=== PATIENT | female | born 1970 | race Caucasian/White ===

== ENCOUNTER → 2017-01-06 | Outpatient (CLI) | payer OTHER ==
[~2017-01-06] MED LIST: PHEN100T26; PROP1TAB77
--- OUTSIDE RECORDS SUMMARY | 2017-01-06 07:49 | XMS REPORT | Continuity of Care Document ---
Demographics Preferred Language Unknown Marital Status Unknown Advent Affiliation Unknown Race Unknown Ethnic Group Unknown Author Author [facility] Address Unknown Phone Unavailable Allergies Active Description Code Type Severity Reaction Onset Reported/Identified Relationship to Patient Clinical Status Yes Penicillins [id number] Drug Allergy Mild N/A 10/14/2009 Medications Problems Date Dx Coded Attending Type Code Diagnosis Diagnosed By 12/09/2012 V04.81 FLU DX (3 YRS AND ABOVE, IM) 10/16/2015 Ot 625.8 10/16/2015 Ot 626.8 10/16/2015 Ot 592.0 10/16/2015 Ot 789.00 10/16/2015 Ot 620.2 10/16/2015 Ot 789.03 10/16/2015 Ot V76.12 10/16/2015 REX YIP Ot V76.12 10/16/2015 REX YIP Ot 793.89 10/16/2015 REX YIP Ot 610.0 10/16/2015 REX YIP Ot 611.89 11/02/2015 Ot 625.8 11/02/2015 Ot 626.8 11/02/2015 Ot 592.0 11/02/2015 Ot 789.00 11/02/2015 Ot 620.2 11/02/2015 Ot 789.03 11/02/2015 Ot V76.12 11/02/2015 REX YIPP Ot V76.12 11/02/2015 REX YIPP Ot 793.89 11/02/2015 QUICKREX Ot 610.0 11/02/2015 QUICKREX REPAIR WEAVER Ot 611.89 11/11/2015 Ot 592.0 11/11/2015 Ot 789.00 11/11/2015 Ot 620.2 11/11/2015 Ot 789.03 11/11/2015 Ot V76.12 11/11/2015 REX YIPP Ot V76.12 11/11/2015 REX YIP Ot 793.89 11/11/2015 REX YIP Ot 610.0 11/11/2015 QUICK, REX Clemons REPAIR WEAVER Ot 611.89 01/21/2016 Ot 592.0 01/21/2016 Ot 789.00 01/21/2016 Ot 620.2 01/21/2016 Ot 789.03 01/21/2016 Ot V76.12 01/21/2016 QUICK, REX Clemons REPAIR WEAVER Ot V76.12 01/21/2016 QUICK, REX Clemons REPAIR WEAVER Ot 793.89 01/21/2016 QUICK, REX Clemons REPAIR WEAVER Ot 610.0 01/21/2016 QUICK, REX Clemons REPAIR WEAVER Ot 611.89 01/29/2016 Ot 592.0 01/29/2016 Ot 789.00 01/29/2016 Ot 620.2 01/29/2016 Ot 789.03 01/29/2016 Ot V76.12 01/29/2016 QUICK, REX Clemons REPAIR WEAVER Ot V76.12 01/29/2016 QUICK, REX Clemons REPAIR WEAVER Ot 793.89 01/29/2016 QUICK, REX Clemons REPAIR WEAVER Ot 610.0 01/29/2016 QUICK, REX Clemons REPAIR WEAVER Ot 611.89 01/29/2016 MARSHA WILKS MAINTENANCE MAN Ot M25.511 02/20/2016 QUICK, REX Clemons REPAIR WEAVER Ot Z12.31 02/27/2016 MARSHA WILKS MAINTENANCE MAN Ot M25.511 03/25/2016 QUICK, REX Celmons REPAIR WEAVER Ot Z12.31 ENCNTR SCREEN MAMMOGRAM FOR MALIGNANT NE 09/11/2016 Ot 592.0 CALCULUS OF KIDNEY 09/11/2016 Ot 789.00 ABDOMINAL PAIN, UNSPECIFIED SITE 09/11/2016 Ot 620.2 OVARIAN CYST NEC/NOS 09/11/2016 Ot 789.03 ABDOMINAL PAIN, RIGHT LOWER QUADRANT 09/11/2016 Ot V76.12 OTH SCREEN MAMMO-MALIGN NEOPLASM OF 09/11/2016 QUICK, REX Clemons REPAIR WEAVER Ot V76.12 OTH SCREEN MAMMO-MALIGN NEOPLASM OF 09/11/2016 QUICK, REX Clemons REPAIR WEAVER Ot 793.89 OTH (ABN) FINDINGS ON RADIOLOGICAL EXAMI 09/11/2016 QUICK, REX Clemons REPAIR WEAVER Ot 610.0 SOLITARY CYST OF BREAST 09/11/2016 QUICK, REX Clemons REPAIR WEAVER Ot 611.89 OTHER SPECIFIED DISORDERS OF BREAST 09/11/2016 MARSHA WILKS APRN Ot M25.511 PAIN IN RIGHT SHOULDER 09/11/2016 REX YIP Ot Z12.31 ENCNTR SCREEN MAMMOGRAM FOR MALIGNANT NE 10/29/2016 Ot 789.00 ABDOMINAL PAIN, UNSPECIFIED SITE 10/29/2016 Ot 620.2 OVARIAN CYST NEC/NOS 10/29/2016 Ot 789.03 ABDOMINAL PAIN, RIGHT LOWER QUADRANT 10/29/2016 Ot V76.12 OTH SCREEN MAMMO-MALIGN NEOPLASM OF 10/29/2016 REX YIP Ot V76.12 OTH SCREEN MAMMO-MALIGN NEOPLASM OF 10/29/2016 REX YIP Ot 793.89 OTH (ABN) FINDINGS ON RADIOLOGICAL EXAMI 10/29/2016 REX YIP Ot 610.0 SOLITARY CYST OF BREAST 10/29/2016 REX YIP Ot 611.89 OTHER SPECIFIED DISORDERS OF BREAST 10/29/2016 MARSHA WILKS APRN Ot M25.511 PAIN IN RIGHT SHOULDER 10/29/2016 REX YIP Ot Z12.31 ENCNTR SCREEN MAMMOGRAM FOR MALIGNANT NE Procedures Results Encounters ACCT No. Visit Date/Time Discharge Status Pt. Type Provider Facility Loc./Unit Complaint [id number] 12/09/2012 16:22:00 12/09/2012 23: 59:59 CLS Outpatient
--- NOTE | 2017-01-06 19:17 | Diagnostic Imaging Report ---
Unilateral diagnostic right mammogram. INDICATION: Right breast lump. This study was compared to the prior exams of 02/19/16, 12/25/14 and 05/17/13. At this time, the patient does complain of a palpable abnormality in the 2-3 o'clock position of the right breast. The current study was also evaluated with a Computer Aided Detection (CAD) system. FINDINGS: A marker is placed in the area of concern. In this area, there does appear to be a small roughly 2.5 x 2.5 cm rounded soft tissue density. The margins of this density are difficult to assess due to the fibroglandular tissue but I suspect that this is a benign process such as a cyst. Even so, a solid mass could present in this manner. Ultrasound would be recommended for further study. The fibroglandular tissue in the right breast is dense and this does limit the sensitivity of this exam. There is no primary or secondary sign of malignancy noted otherwise. There are a few calcifications evident in the right breast but these calcifications have a generally benign appearance. IMPRESSION: Ultrasound would be recommended for further evaluation of the 2.5 x 2.5 cm rounded density in the area of the patient's palpable abnormality. ACR BI-RADS Category 0: Incomplete. (Needs additional imaging evaluation). Result letter will be mailed to the patient. Note: At least 10% of breast cancer is not imaged by mammography. Dictated by: Dictated on workstation # [id number]
--- NOTE | 2017-01-06 20:03 | Diagnostic Imaging Report ---
Right breast ultrasound. INDICATION: Right breast mass. FINDINGS: The diagnostic mammogram performed earlier today suggested that there was a soft tissue density in the region of the patient's palpable abnormality in the 1-2 o'clock position of the right breast. The ultrasound examination of this are does show a well-circumscribed 2.3 x 1.6 x 2.4 cm hypoechoic area with a few internal echoes in this region. I suspect that this is a cyst which has been slightly complicated by infection and/or hemorrhage. There is no sign of a solid mass to suggest malignancy. The calcifications in the right breast seen on the mammogram could not be identified on this study. IMPRESSION: 1. The patient's palpable abnormality is felt to be related to a small slightly complicated cyst. There is no evidence for malignancy. 2. The patient should have her annual bilateral screening mammogram on schedule in February of 2017. The suspected cyst in the right breast could be further evaluated at that time with a repeat ultrasound exam, if clinically indicated. ACR BI-RADS Category 2: Benign findings. Dictated by: Dictated on workstation # [id number]
== END ==
LOC: RAD 07:46
PROVIDERS: ATTEND Nurse Practitioner
DX: N63 Unspecified lump in breast (principal)

== ENCOUNTER → 2018-02-17 | Outpatient (CLI) | payer BC ==
--- NOTE | 2018-02-17 20:27 | Diagnostic Imaging Report ---
EXAMINATION: Ultrasound of the right breast, limited. INDICATION: Right Breast mass. FINDINGS: The screening mammogram performed on 02/04/2018 noted a small but slightly enlarging density in the superior outer aspect of the right breast in the region of the axillary tail. The diagnostic mammogram performed earlier today suggested that this was most likely a benign process as it had a smooth border. On this exam, there is a well-circumscribed avascular hypoechoic lesion with through-transmission in the 10:30 position of the breast, roughly 9 cm from the nipple. This measures 0.6 x 0.5 x 0.6 cm. This has the appearance of a simple cyst, and most likely this does correspond to the density seen on the mammogram. There are no solid lesions in this area to suggest malignancy. IMPRESSION: 1. The small density seen in the upper-outer aspect of the right breast on the screening mammogram is felt to represent a cyst. There is no evidence of malignancy. 2. The patient should have her annual bilateral screening mammogram on schedule in January of 2019. ACR BI-RADS Category 2: Benign findings. Dictated by: Dictated on workstation # [id number]
--- NOTE | 2018-02-17 20:53 | Diagnostic Imaging Report ---
Unilateral diagnostic right mammogram. INDICATION: Abnormal screening mammogram. The current study was also evaluated with a Computer Aided Detection (CAD) system. The prior exam of 02/04/2018 noted a slightly enlarging density in the upper-outer aspect of the right breast. Compression views of this area show that this density has a generally benign appearance. Even so, ultrasound would be recommended for further study. IMPRESSION: Ultrasound would be recommended for further aeration of the benign-appearing nodular density in the upper aspect of the right breast. ACR BI-RADS Category 0: Incomplete. (Needs additional imaging evaluation). Result letter will be mailed to the patient. Note: At least 10% of breast cancer is not imaged by mammography. Dictated by: Dictated on workstation # [id number]
== END ==
LOC: RAD 12:39
PROVIDERS: ATTEND Nurse Practitioner
DX: N63.11 Unspecified lump in the right breast, upper outer quadrant (principal)

== ENCOUNTER → 2019-05-03 | Outpatient (CLI) | payer BC ==
--- NOTE | 2019-05-03 19:05 | Diagnostic Imaging Report ---
INDICATION: Routine screening. Comparison is made with prior mammograms from 02/04/2018 and 02/19/2016. 2-D and 3-D bilateral screening mammography was performed. The current study was also evaluated with a Computer Aided Detection (CAD) system. 3-D tomosynthesis was also performed and reviewed. FINDINGS: Both breasts are heterogeneously dense, limiting the sensitivity of mammography. A density in the region of the axillary tail of the right breast appears stable. There are benign calcifications in the retroareolar left breast. No new mass or malignant-appearing microcalcifications are seen. Axillae are unremarkable. IMPRESSION: No mammographic features suspicious for malignancy are identified. ACR BI-RADS Category 2: Benign findings. Result letter will be mailed to the patient. Note: At least 10% of breast cancer is not imaged by mammography. Dictated by: Dictated on workstation # [id number]
== END ==
LOC: RAD 15:08
PROVIDERS: ATTEND Nurse Practitioner
DX: Z12.31 Encounter for screening mammogram for malignant neoplasm of breast (principal)
CPT/HCPCS: 77067

== ENCOUNTER → 2020-10-08 | Outpatient (CLI) | payer BC ==
--- NOTE | 2020-10-08 16:23 | Diagnostic Imaging Report ---
PROCEDURE: US Non-ob pelvis comp/trans. TECHNIQUE: Multiple Real-time grayscale images were obtained of the pelvis in various projections endovaginally. Transabdominal imaging was also performed. INDICATION: Dysfunctional uterine bleeding. FINDINGS: The uterus is anteverted and measures 8.7 x 4.5 x 6.7 cm. There is a mixed echogenicity mass in the endometrium measuring 1.6 x 2.1 cm. There is no blood flow within it. This is likely a hematoma. The right ovary is not visualized. The left ovary is normal in appearance. There are no adnexal masses. There is no free pelvic fluid. IMPRESSION: Mixed echogenicity area within the endometrium following ablation measuring 1.6 x 2.1 cm, likely a hematoma. There is no blood flow within this. Recommend clinical correlation and followup ultrasound as clinically warranted. Dictated by: Dictated on workstation # [id number]
== END ==
LOC: RAD 14:46
PROVIDERS: ATTEND Nurse Practitioner
DX: N93.8 Other specified abnormal uterine and vaginal bleeding (principal); N85.8 Other specified noninflammatory disorders of uterus
CPT/HCPCS: 76830; 76856

== ENCOUNTER → 2020-10-16 | Outpatient (CLI) | payer BC ==
--- NOTE | 2020-10-17 07:59 | NUR ---
Notified patient of her positive COVID test.
== END ==
LOC: LABNPT 08:38
PROVIDERS: ATTEND Family Medicine
DX: U07.1 COVID-19 (principal)
CPT/HCPCS: 87635

== ENCOUNTER 2021-06-23 14:03 | Emergency (ER) | payer BC ==
[~2021-06-23] VITALS: Ht 165.1 cm; Wt 50.8 kg
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
[2021-06-23 14:39] LABS: BASOPHILS % (AUTO) 0 % (0-10); EOSINOPHILS # (AUTO) 0.2 10^3/uL (0.0-0.3); EOSINOPHILS % (AUTO) 2 % (0-10); HEMATOCRIT 40 % (35-52); HEMOGLOBIN 13.4 g/dL (11.5-16.0); LYMPHOCYTES # (AUTO) 2.8 10^3/uL (1.0-4.0); LYMPHOCYTES % (AUTO) 32 % (12-44); MEAN CORPUSCULAR HEMOGLOBIN 31 pg (25-34); MEAN CORPUSCULAR HGB CONC 33 g/dL (32-36); MEAN CORPUSCULAR VOLUME 92 fL (80-99); MEAN PLATELET VOLUME 9.3 fL (9.0-12.2); MONOCYTES # (AUTO) 0.5 10^3/uL (0.0-1.0); MONOCYTES % (AUTO) 6 % (0-12); NEUTROPHILS # (AUTO) 5.1 10^3/uL (1.8-7.8); NEUTROPHILS % (AUTO) 60 % (42-75); PLATELET COUNT 287 10^3/uL (130-400); WHITE BLOOD COUNT 8.6 10^3/uL (4.3-11.0)
[2021-06-23 14:41] LABS: CHLORIDE 104 MMOL/L (98-107); POTASSIUM 3.7 MMOL/L (3.6-5.0); SODIUM 142 MMOL/L (135-145)
[2021-06-23 14:42] LABS: CALCIUM 9.5 MG/DL (8.5-10.1)
[2021-06-23 14:43] LABS: GLUCOSE 133 MG/DL (70-105)
[2021-06-23 14:44] LABS: CARBON DIOXIDE 27 MMOL/L (21-32); PROTHROMBIN TIME PATIENT 13.7 SEC (12.2-14.7)
[2021-06-23 14:45] LABS: BILIRUBIN,TOTAL 0.5 MG/DL (0.1-1.0)
[2021-06-23] MEDS ORDERED: ASPIRIN 81 MG CHEW (CHILDREN'S ASA) PO ONE (14:45)
[2021-06-23 14:46] LABS: ALKALINE PHOSPHATASE 80 U/L (40-136)
[2021-06-23 14:47] LABS: CREATININE SERUM 0.78 MG/DL (0.60-1.30); GFR ESTIMATED 78
[2021-06-23 14:48] LABS: BUN/CREATININE RATIO 23
[2021-06-23 14:49] LABS: MAGNESIUM 2.2 MG/DL (1.6-2.4)
[2021-06-23 14:50] LABS: ALANINE AMINOTRANSFERASE 17 U/L (0-55)
--- NOTE | 2021-06-23 14:51 | Diagnostic Imaging Report ---
INDICATION: Left-sided chest pain. FINDINGS: The lungs are clear. There is no pneumothorax or pleural fluid. No failure, effusion, or pneumothorax. IMPRESSION: No acute appearing abnormality. Dictated by: Dictated on workstation # [id number]
[2021-06-23] MEDS ORDERED: KETOROLAC 30 MG/ML VIAL IVP STA (15:07)
[2021-06-23] MEDS ORDERED: NAPR-1071 PO (15:26)
[2021-06-23 15:35] VITALS: BP 97/49
== END 2021-06-23 15:35 | disposition home or self-care (01) ==
LOC: EDUNIT# 14:03 → ER 14:05
DX: R07.1 Chest pain on breathing (principal); Z86.16 Personal history of COVID-19
CPT/HCPCS: 36415; 71045; 80053; 83735; 83874; 84484; 85025; 85610; 85730; 93005; 93041

== ENCOUNTER → 2021-07-04 | Outpatient (CLI) | payer BC ==
[~2021-07-04] MED LIST changes: +NAPR-1071 PO
--- NOTE | 2021-07-07 09:03 | Diagnostic Imaging Report ---
Indication: Routine screening. Comparison is made with prior mammogram 06/28/2020 and 05/03/2019. 2-D and 3-D bilateral screening mammography was performed with CAD. Both breasts are heterogeneously dense, limiting the sensitivity of mammography. There are benign calcifications present. Overall parenchymal pattern appears to be stable. No dominant mass or malignant-appearing microcalcifications are seen. Axillae are unremarkable. IMPRESSION: BI-RADS Category 2 No mammographic features suspicious for malignancy are identified. ACR BI-RADS Category 2: Benign findings. Result letter will be mailed to the patient. Note: At least 10% of breast cancer is not imaged by mammography. Dictated by: Dictated on workstation # [id number]
== END ==
LOC: RAD 14:51
PROVIDERS: ATTEND Family Medicine
DX: Z12.31 Encounter for screening mammogram for malignant neoplasm of breast (principal)
CPT/HCPCS: 77063; 77067

== ENCOUNTER → 2022-02-17 | Outpatient (CLI) | payer BC ==
[~2022-02-17] VITALS: Ht 165.1 cm; Wt 52.2 kg
== END ==
LOC: PREOP 13:25
PROVIDERS: ATTEND Surgery
DX: Z01.818 Encounter for other preprocedural examination (principal)

== ENCOUNTER 2022-02-25 08:48 | Day surgery (SDC) | payer BC ==
[~2022-02-25] VITALS: Ht 165.1 cm; Wt 52.2 kg
[2022-02-25] VITALS (8 sets, daily range): BP systolic 88–103; BP diastolic 49–54
[2022-02-25] MEDS ORDERED: LACTATED RINGERS 1,000 ML IV ONE (08:53)
[2022-02-25] MEDS ORDERED: LACTATED RINGERS 1,000 ML IV STA (08:54)
[2022-02-25] MEDS ORDERED: LIDOCAINE JELLY 2% 6 ML SYRINGE MM PRN (09:00)
[2022-02-25] MEDS ORDERED: MIDAZOLAM 2 MG/2 ML (VERSED) VIAL ONE (09:14)
[2022-02-25] MEDS ORDERED: PROPOFOL INJECTION 50 ML IV ONE (09:14)
--- NOTE | 2022-02-25 09:56 | Progress Note-Pre Operative ---
Pre-Operative Progress Note H&P Reviewed The H&P was reviewed, patient examined and no changes noted. Date Seen by Provider: Feb 25, 2022 Time Seen by Provider: :30 Date H&P Reviewed: Feb 25, 2022 Time H&P Reviewed: :30 Pre-Operative Diagnosis: screening ELLIS Olmos MD Feb 25, 2022 09:56
--- NOTE | 2022-02-25 09:57 | Discharge Inst-Surgical ---
D/C Lap Instructions-STEVE Follow Up Activity as tolerated High Fiber Diet 25g or more per day Avoid Alcohol, Caffeine, Spicy [place] and Acid foods. Drink 64 fluid oz or more of fluids per day. Symptoms to Report: Fever over 101 degree F, Nausea/Vomiting If any problems/questions: Contact your physician or go to Emergency Room ELLIS WILSON MD Feb 25, 2022 09:57
[2022-02-25] MEDS ORDERED: ONDANSETRON 4 MG/2 ML (SDV) Z0FRAN IVP PRN (10:00)
[2022-02-25] MEDS ORDERED: ONDANSETRON 4 MG (ZOFRAN) ORAL DISSOLVE TAB PO PRN (10:00)
--- NOTE | 2022-02-25 10:56 | Progress Note-Post Operative ---
Post-Operative Progess Note Surgeon (s)/Napkin Machine Operator (s) Surgeon ELLIS WILSON MD Napkin Machine Operator: none Pre-Operative Diagnosis screening colo Post-Operative Diagnosis normal colon and rectum Procedure & Operative Findings Date of Procedure 02/25/22 Procedure Performed/Findings normal colon and rectum Anesthesia Type mac Estimated Blood Loss Estimated blood loss (mL): minimal Specimens/Packing Specimens Removed none ELLIS WILSON MD Feb 25, 2022 10:56
--- NOTE | 2022-02-25 14:32 | Anesthesia-General Post-Op ---
MAC Patient Condition Mental Status/LOC: Same as Preop Cardiovascular: Satisfactory Nausea/Vomiting: Absent Respiratory: Satisfactory Pain: Controlled Complications: Absent Post Op Complications Complications None Follow Up Care/Instructions Patient Instructions None needed. Anesthesiology Discharge Order Discharge Order Patient is doing well, no complaints, stable vital signs, no apparent adverse anesthesia problems. No complications reported per nursing. JOSESITO NICHOLAS CRNA Feb 25, 2022 14:31
--- NOTE | 2022-02-25 15:07 | OPERATIVE REPORT ---
DATE OF SERVICE: 02/25/2022 ATTENDING PRIMARY CARE PHYSICIAN: Felipa Gordon DO. PREOPERATIVE DIAGNOSIS: Screening colonoscopy. POSTOPERATIVE DIAGNOSIS: Normal colon and rectum. PROCEDURE PERFORMED: Colonoscopy. SURGEON: Ellis Wilson MD. ANESTHESIA: Monitored anesthesia care. ESTIMATED BLOOD LOSS: Minimal. FINDINGS: Normal colon and rectum. DISPOSITION: The patient tolerated the procedure well. INDICATIONS FOR PROCEDURE: The patient is a 51-year-old female in need of a screening colonoscopy. She has not had a colonoscopy up to this point in her life. She does not report any major issues with diarrhea nor constipation as well as no red blood per rectum nor any dark tarry stools. She also does not report any family history of colon cancer. DESCRIPTION OF PROCEDURE: The patient was brought to the endoscopy suite, laid in the left lateral decubitus position. After adequate IV pain and sedative medications and monitored anesthesia care, a digital rectal examination was performed. No significant hemorrhoids were identified. Normal sphincter tone was felt and there were no palpable masses. The endoscope was then intubated in the anus and rectum gently insufflated. The endoscope was then advanced through the valves of [place] of the rectum with no polyps or any neoplasms identified. The endoscope was then advanced through the sigmoid colon, where no diverticulosis identified. The endoscope was then advanced to the remainder of the descending, transverse and ascending colon to the cecum, which were normal. No polyps or any neoplasms identified. The endoscope was then slowly withdrawn while taking a second look and suctioning of residual air with no additional findings. The patient tolerated the procedure well. We will recommend continued medical management with a high fiber diet with at least 25 grams of fiber daily as well as significant amounts of water to promote soft stools on a daily basis and if she is asymptomatic, she does not need another colonoscopy for another 10 years. Job ID: [id number] DocumentID: [id number] Dictated Date: 02/25/2022 10:43:31 Technical Specialist Cytology Date: 02/25/2022 15:07:06 Dictated By: ELLIS WILSON MD
== END 2022-02-25 12:30 | disposition home or self-care (01) ==
LOC: ENDO 08:48
PROVIDERS: ATTEND Surgery
DX: Z12.11 Encounter for screening for malignant neoplasm of colon (principal); Z80.0 Family history of malignant neoplasm of digestive organs

== ENCOUNTER → 2022-07-09 | Outpatient (CLI) | payer BC ==
--- NOTE | 2022-07-10 09:02 | Diagnostic Imaging Report ---
Indication: Routine screening. Comparison is made with prior mammogram 07/04/2021 and 06/28/2020. 2-D and 3-D bilateral screening mammography was performed with CAD. CAD is utilized. The current study was also evaluated with a Computer Aided Detection (CAD) system. Both breasts are heterogeneously dense, limiting the sensitivity of mammography. Benign calcifications are again noted. No mass or malignant appearing microcalcifications are seen. Axillae are unremarkable. IMPRESSION: BI-RADS Category 2 No mammographic features suspicious for malignancy are identified. ACR BI-RADS Category 2: Benign findings. Result letter will be mailed to the patient. Note: At least 10% of breast cancer is not imaged by mammography. Dictated by: Dictated on workstation # [id number]
== END ==
LOC: RAD 15:45
PROVIDERS: ATTEND Surgery
DX: Z12.31 Encounter for screening mammogram for malignant neoplasm of breast (principal)
CPT/HCPCS: 77063; 77067

== ENCOUNTER → 2023-05-11 | Outpatient (CLI) | payer BC | LOC: CARD 14:06 | DX: I08.3 Combined rheumatic disorders of mitral, aortic and tricuspid valves (principal); F41.1 Generalized anxiety disorder | CPT/HCPCS: 93306 ==

== ENCOUNTER → 2023-07-06 | Outpatient (CLI) | payer BC ==
--- NOTE | 2023-07-06 20:50 | Diagnostic Imaging Report ---
Indication: Routine screening. Comparison is made with prior mammograms 07/09/2022 and 07/04/2021. 2-D and 3-D bilateral screening mammography was performed with CAD. Both breasts are heterogeneously dense, limiting the sensitivity of mammography. The parenchymal pattern is stable. No mass or malignant-appearing microcalcifications are seen. There are benign calcifications noted. Axillae are unremarkable. IMPRESSION: BI-RADS Category 2 No mammographic features suspicious for malignancy are identified. ACR BI-RADS Category 2: Benign findings. Result letter will be mailed to the patient. Note: At least 10% of breast cancer is not imaged by mammography. Dictated by: Dictated on workstation # [id number]
== END ==
LOC: RAD 13:19
PROVIDERS: ATTEND Nurse Practitioner Family
DX: Z12.31 Encounter for screening mammogram for malignant neoplasm of breast (principal)
CPT/HCPCS: 77063; 77067